=== PATIENT | male | born 1975 | race Caucasian/White ===

== ENCOUNTER 2022-08-06 08:37 | Emergency (ER) | payer OTHER, SELFPAY ==
[2022-08-06 08:43] VITALS: BP 148/78; PULSE 71; RESP 16; TEMP 37; O2SAT 100
--- NOTE | 2022-08-06 09:28 | ED.EAR ---
HPI - Ear Problem General Chief complaint: Ear Stated complaint: Left ear ache Time Seen by Provider: 08/06/22 09:28 Source: patient, RN notes reviewed and old records reviewed Mode of arrival: ambulatory Limitations: no limitations History of Present Illness HPI Narrative: 46 year old male who presents to [facility] care with complaints of decreased hearing and feeling like ears are clogged with some discomfort to his left ear for the past 2 days and some minimal discomfort to right ear.Patient reports that he has bee taking some Ibuprofen for his discomfort and did put some oil stuff in his ears. Patient denies any acute cough, or cold symptoms or any fevers. MD Complaint: ear pain and decreased hearing Location: bilateral Severity: mild Discharge from ear: Reports no Treatment prior to arrival: oral analgesic and other (ear oil) Related Data Home Medications Medication Instructions Recorded Confirmed No Home Medications 08/06/22 08/06/22 Allergies Allergy/AdvReac Type Severity Reaction Status Date / Time No Known Allergies Allergy Verified 08/06/22 08:49 Review of Systems Review of Systems: CONSTITUTIONAL: Denies malaise, chills, sweats, or fever. EYES: Denies visual changes, redness, or discharge. ENT: Reports no rhinorrhea, congestion, sinus pain,positive otalgia no sore throat. CARDIOVASCULAR: Denies chest pain, palpitations, or edema. RESPIRATORY: Reports no acute cough.? Denies dyspnea. GASTROINTESTINAL: Denies abdominal pain, nausea, vomiting, diarrhea SKIN: Denies rash or itching. MUSCULOSKELETAL: Denies myalgia. NEUROLOGIC: Denies headache. All systems reviewed & are unremarkable except as noted in HPI and below PMFSH Social History Social History (Updated 08/08/22 @ 08:00 by Tasha Malloy NP) Smoking packs per day: 1 Smoking cigarettes per day: 20.0 Years smoked: 25 Smoking pack-years: 25.00 Smoking status: Current every day smoker Alcohol intake: never Substance use type: does not use Living arrangements: with family Gender identity (if verbalized by the patient): Male Comments At time of signature, agree with nursing past medical, surgical, social and family history. There is no relevant family history pertinent to the presenting complaint Exam Narrative: GENERAL: Well-appearing, well-nourished, and in no acute distress. HEAD: Normocephalic EYES: PERRLA, conjunctivae clear ENT: Nares clear, turbinates edematous and erythematous, clear discharge. Mucous membranes moist.Bilateral ear cerumen impactions; once irrigated TM pearly magallanes with dull light reflex bilaterally; no tragal tenderness. Oropharynx erythematous without lesions. Tonsils not enlarged and without exudate, no drooling, no hoarseness, no trismus, uvula midline. NECK: Supple. No lymphadenopathy CHEST: Decreased to auscultation, breath sounds equal. No wheezing, rhonchi, rales, or stridor. No respiratory distress, speaks in full sentences.SAO2 100% on room air. HEART: Regular rate and rhythm. No murmur heard. SKIN: Warm, dry, no rash. NEURO: Alert and oriented x3. PSYCH: Normal mood and affect Course Course Emergency Course: Patient is aware of diagnosis, understands and agrees to treatment plan.? Anticipatory guidance given.? Patient agrees to follow-up as directed and is aware of reasons to seek care at the emergency department. Portions of this record may have been created with voice recognition software Level of Care: Express Care Visit Vital Signs Vital signs: Vital Signs Temperature 37.0 C 08/06/22 08:43 Pulse Rate 71 08/06/22 08:43 Respiratory Rate 16 08/06/22 08:43 Blood Pressure 148/78 H 08/06/22 08:43 Pulse Oximetry 100 08/06/22 08:43 Oxygen Delivery Room Air 08/06/22 08:43 Temperature 37.0 C 08/06/22 08:43 Pulse Rate 71 08/06/22 08:43 Respiratory Rate 16 08/06/22 08:43 Blood Pressure 148/78 H 08/06/22 08:43 Pulse Oximetry 10
== END 2022-08-06 10:16 | disposition home or self-care (01) ==
PROVIDERS: Emergency Provider Registered Nurse
DX: H61.23 Impacted cerumen, bilateral (principal); F17.210 Nicotine dependence, cigarettes, uncomplicated
CPT/HCPCS: 69210; 99202; G0463